=== PATIENT | female | born 1965 | race Caucasian/White ===

== ENCOUNTER → 2018-10-02 | Outpatient (CLI) | payer BC | LOC: COL.RAD 08:18 | DX: M25.512 Pain in left shoulder (principal) | CPT/HCPCS: J3301; Q9967 ==

== ENCOUNTER → 2018-10-19 | Outpatient (CLI) | payer BC | LOC: ZCOL.LAB 16:26 | DX: Z01.812 Encounter for preprocedural laboratory examination (principal); Z86.14 Personal history of Methicillin resistant Staphylococcus aureus infection ==